=== PATIENT | female | born 1995 | race Caucasian/White ===

== ENCOUNTER 2022-03-23 17:31 | Emergency (ER) | payer OTHER, SELFPAY ==
--- NOTE | ~2022-03-23 | XR_ITS ---
EXAM: XR wrist RT min 3V DATE: 03/23/2022 18:49 HISTORY: pain, paresthesias . COMPARISON: None available. FINDINGS: Normal mineralization. No fracture or dislocation. No lytic or blastic lesion. Joint space s are maintained. No erosion or periosteal change. Soft tissues within normal limits. IMPRESSION: No acute osseous finding in the right wrist. Reviewed, dictated and finalized at location K. [employer] SAL[employer] COORDINATOR
--- NOTE | ~2022-03-23 | CT_ITS ---
EXAMINATION: CT cervical spine wo con DATE: 03/23/2022 18:56 INDICATION: right arm pain, paresthesias TECHNIQUE: Computed tomography (CT) of the cervical spine was performed without intravenous contrast. Automated exposure control and iterative reconstruction technique were employed. The dose-length pro duct was 458.34 mGy-cm. COMPARISON: None. FINDINGS: Vertebral Body Alignment: Intact. Straightening of the cervical spine as can occur with positioning o r muscle spasm. Craniocervical and atlantoaxial alignment: No significant degenerative change. Alignment intact. Osseous structures/fracture: No evidence of a lytic or blastic process in the visualized spine. No e vidence of acute fracture. . Cervical soft tissues: The paraspinal soft tissues planes are maintained. Degenerative changes: No significant degenerative changes. IMPRESSION: No acute fracture or traumatic malalignment in the cervical spine Reviewed, dictated and finalized at location K. R WOOD CUTTER
[2022-03-23 17:40] VITALS: BP 137/95; PULSE 89; RESP 16; TEMP 36.6; O2SAT 100
--- NOTE | 2022-03-23 18:40 | ED.EXTPRO ---
HPI - Extremity Problem General Chief complaint: Extremity Problem,Nontraumatic Stated complaint: burning pain and numbness in right hand Time Seen by Provider: 03/23/22 18:26 Source: patient Mode of arrival: ambulatory Limitations: no limitations History of Present Illness HPI Narrative: This is a 26 year old female that presents to the ER for right hand paresthesias ongoing over the last month. Reports tingling in the right fourth and fifth fingers. Reports weakness in her right hand. 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 Reports today she started to have pain and burning radiating into her arm which prompted her to be seen. She has not been evaluated for this complaint yet. Reports she does not currently have a primary care doctor. No recent injuries or trauma. Denies fever, erythema, or edema. Related Data Home Medications Medication Instructions Recorded Confirmed famotidine 03/23/22 Allergies Allergy/AdvReac Type Severity Reaction Status Date / Time No Known Allergies Allergy Verified 03/23/22 17:49 Review of Systems Review of Systems: CONSTITUTIONAL: Denies fever CARDIOVASCULAR: Denies edema. SKIN: Denies rash MUSCULOSKELETAL: Reports joint pain, and myalgia. NEUROLOGIC: Reports weakness. All systems reviewed & are unremarkable except as noted in HPI and below PMFSH Past Medical History Medical History (Updated 03/23/22 @ 19:31 by Lucy Ulloa PA-C) No active medical problems Social History Social History (Updated 03/23/22 @ 18:43 by Lucy Ulloa PA-C) Substance use: never Exam Narrative: GENERAL: Well-appearing, well-nourished, and in no acute distress. HEAD: Normocephalic, atraumatic. EYES: EOMI. NECK: No midline spinal tenderness CHEST: Clear to auscultation. No respiratory distress. No wheezes rales or rhonchi HEART: Regular rate and rhythm. No murmur heard. Normal peripheral pulses. EXTREMITIES: Normal range of motion. No edema or erythema. Normal DP pulse. Strength equal in bilateral upper extremities (5/5) SKIN: Warm, dry, no rash. NEURO: No focal deficits. Alert and oriented x3. PSYCH: Normal mood and affect Course Course Emergency Course: Patient updated on work-up and agrees with plan of care. Resting comfortably Vital Signs Vital signs: Vital Signs Temperature 98 F 03/23/22 17:40 Pulse Rate 89 03/23/22 17:40 Respiratory Rate 16 03/23/22 17:40 Blood Pressure 137/95 H 03/23/22 17:40 Pulse Oximetry 100 03/23/22 17:40 Temperature 98 F 03/23/22 17:40 Pulse Rate 89 03/23/22 17:40 Respiratory Rate 16 03/23/22 17:40 Blood Pressure 137/95 H 03/23/22 17:40 Pulse Oximetry 100 03/23/22 17:40 MDM - Extremity (Nontraumatic) MDM Narrative Medical decision making narrative: Patient presents to the emergency department for right hand paresthesias. This has been ongoing over the last month. No notable neurologic deficits on exam. 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 Has paresthesias in the ulnar nerve distribution. No erythema, edema, or warmth of the arm. Right wrist x-ray without acute osseous abnormalities. CT scan of the cervical spine without concerning findings. Patient was updated on case findings. Will be given follow-up with hand surgery. Instructed on conservative management in the meantime. She was given warnings to return to the ER Differential Diagnosis Differential diagnosis: Likely other (Ulnar neuropathy, cervical radiculopathy) Imaging Data Radiologist's impression: ITS Impressions Wrist X-Ray 03/23/22 18:55 IMPRESSION: No acute osseous finding in the right wrist. Cervical Spine CT 03/23/22 19:04 IMPRESSION: No acute fracture or traumatic malalignment in the cervical spine Critical Care Time Critical Care Time Critical Care Time: No Discharge Plan Discharge Clinical Impression: Paresthesias in right hand
[2022-03-23] MEDS: ACETAMINOPHEN 500 MG TABLET 1000 MG PO (19:13)
== END 2022-03-23 19:56 | disposition home or self-care (01) ==
PROVIDERS: Emergency Provider Physician Assistant
DX: R20.2 Paresthesia of skin (principal)
CPT/HCPCS: 72125; 73110; 99284; A9270

== ENCOUNTER 2023-03-29 10:23 | Emergency (ER) | payer OTHER, SELFPAY ==
[2023-03-29 10:24] VITALS: BP 123/79; PULSE 98; RESP 18; TEMP 36.4; O2SAT 100
--- NOTE | 2023-03-29 11:37 | ED.GENADULT ---
HPI - General Adult General Chief complaint: Back Pain/Injury Stated complaint: back pain Time Seen by Provider: 03/29/23 11:23 Source: patient Mode of arrival: ambulatory Limitations: no limitations History of Present Illness HPI narrative: This is a 27-year-old female who presents to the ED with chief complaint of lower back pain which began yesterday. Reports that she your out of the shower and felt like she could not hold herself up due to pain. Denies any specific injury or fall. Related Data Allergies Allergy/AdvReac Type Severity Reaction Status Date / Time No Known Allergies Allergy Verified 03/29/23 10:52 [facility] Past Medical History Medical History GERD (gastroesophageal reflux disease) Headache, migraine Surgical History Surgical History History of surgery on arm Right nerve arm surgery 06/2022 History of tonsillectomy 02/2021 Family History Family History Father Acute lymphoblastic leukemia (ALL) Von Willebrand disease Other Acute lymphoblastic leukemia (ALL) Grandparent Acute lymphoblastic leukemia (ALL) Asthma Hypertension Diabetes mellitus Mother Alcoholism Depression Factor V Leiden carrier Social History Social History Smoking status: Never smoker Alcohol intake: current Substance use: never Substance use type: does not use Living arrangements: with roommate(s) Occupation/Education: occupation 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 HEAD: Normocephalic, atraumatic. EYES: PERRLA and EOMI. ENT: Nares clear, no rhinorrhea or epistaxis. Mucous membranes moist. Oropharynx without tonsillar hypertrophy exudate or other lesions. NECK: Supple. No adenopathy or masses. CHEST: No respiratory distress. Clear to auscultation. No wheezes rales or rhonchi HEART: Regular rate and rhythm. No murmur heard. Normal peripheral pulses. ABDOMEN: Soft, nontender, nondistended, normal active bowel sounds. MSK: Positive straight leg raise on the right. Negative on the left. No midline spinal tenderness. Mild paraspinal tenderness in the lumbar region bilaterally. Normal range of motion. No edema. SKIN: Warm, dry, no rash. NEURO: Alert and oriented x3. No focal deficits. No saddle anesthesia. 5/5 strength and sensation in the upper and lower extremities. PSYCH: Normal mood and affect. Course Vital Signs Vital signs: Vital Signs Temperature 97.5 F L 03/29/23 10:24 Pulse Rate 98 03/29/23 10:24 Respiratory Rate 18 03/29/23 10:24 Blood Pressure 123/79 03/29/23 10:24 Pulse Oximetry 100 03/29/23 10:24 Oxygen Delivery Room Air 03/29/23 10:24 Temperature 97.5 F L 03/29/23 10:24 Pulse Rate 80 03/29/23 13:45 Respiratory Rate 16 03/29/23 13:45 Blood Pressure 113/79 03/29/23 13:45 Pulse Oximetry 97 03/29/23 13:45 Oxygen Delivery Room Air 03/29/23 10:24 Medical Decision Making MDM Narrative Medical decision making narrative: This patient presents with back pain most consistent with lumbar strain. Differential diagnoses includes lumbago versus musculoskeletal spasm / strain versus sciatica. No back pain red flags on history or physical. Presentation not consistent with malignancy (lack of history of malignancy, lack of B symptoms), fracture (no trauma, no bony tenderness to palpation), cauda equina (no bowel or urinary incontinence/retention, no saddle anesthesia, no distal weakness), AAA, viscus perforation , pulmonary embolism, renal colic, pyelonephritis (afebrile, no CVAT, no urinary symptoms). Given the
[2023-03-29] MEDS: ORPHENADRINE CITRATE 100 MG TABLET.ER PO (12:03)
[2023-03-29] MEDS: KETOROLAC 30 MG/ML VIAL (*BKC) IM (12:03)
[2023-03-29] MEDS: ACETAMINOPHEN 500 MG TABLET 1000 MG PO (12:03)
[2023-03-29 13:45] VITALS: BP 113/79; PULSE 80; RESP 16; O2SAT 97
== END 2023-03-29 13:45 | disposition home or self-care (01) ==
PROVIDERS: Emergency Provider Physician Assistant; PCP Family Medicine
DX: S39.012A Strain of muscle, fascia and tendon of lower back, initial encounter (principal); K21.9 Gastro-esophageal reflux disease without esophagitis; X58.XXXA Exposure to other specified factors, initial encounter
CPT/HCPCS: 96372; 99283; A9270; J1885

== ENCOUNTER 2023-03-30 10:36 | Outpatient (CLI) | payer OTHER, SELFPAY ==
[2023-03-30 19:59] LABS: Basophils Percent Auto 0.2 % (0.2-1.2); Eosinophils Absolute Auto 0.3 K/mm3 (0-0.3); Eosinophils Percent Auto 5.7 % (0-4.4); Hematocrit 35.5 % (37.0-47.0); Hemoglobin 9.8 g/dL (12.0-15.0); Immature Granulocyte Absolute 0.02 K/mm3 (0.00-0.031); Immature Granulocyte Percent A 0.4 % (0-0.5); Lymphocytes Absolute Auto 1.65 K/mm3 (0.9-3.2); Lymphocytes Percent Auto 35.1 % (18.3-44.2); Mean Corpuscular HGB Conc 27.6 g/dl (32-36); Mean Corpuscular Hemoglobin 22.2 pg (26-34); Mean Corpuscular Volume 80.3 fl (80-100); Mean Platelet Volume 9.8 fl (7.4-10.4); Monocytes Absolute Auto 0.4 K/mm3 (0.1-0.6); Monocytes Percent Auto 9.1 % (2.6-8.5); Neutrophils Absolute Auto 2.3 K/mm3 (1.3-6.7); Neutrophils Percent Auto 49.5 % (45.5-73.1); Platelet Count Result 185 k/mm3 (150-375); Red Blood Count 4.42 M/mm3 (4.2-5.4); Red Cell Distribution Width 17.1 % (11.5-14.5); White Blood Count 4.7 K/mm3 (4.5-10.0)
[2023-03-30 20:00] LABS: Alanine Aminotransferase 16 U/L (6-35); Albumin Level 4.4 g/dL (3.5-5.1); Alkaline Phosphatase 79 U/L (38-126); Anion Gap 5 mmol/L (8-16); Aspartate Amino Transferase 26 U/L (14-36); Bilirubin,Total 0.4 mg/dL (0.2-1.3); Blood Urea Nitrogen 20 mg/dL (7-17); Calcium 9.2 mg/dL (8.4-10.2); Carbon Dioxide 29 mmol/L (22-30); Chloride 103 mmol/L (98-107); Cholesterol 224 mg/dL (0-200); Estimated Glomerular Filt Rate > 60; Glucose 71 mg/dL (65-110); HDL Direct 82 mg/dL; Potassium 4.6 mmol/L (3.4-5.0); Sodium 137 mmol/L (137-145); Triglycerides 68 mg/dL (<150)
[2023-03-30 20:06] LABS: Rheumatoid Factor < 12.0 IU/ML (<12)
[2023-03-30 20:12] LABS: LDL Cholesterol Direct 102 mg/dL
[2023-03-30 21:02] LABS: Erythrocyte Sedimentation Rate 20 mm/hr (0-20)
[2023-03-30 21:11] LABS: Hemoglobin A1C 5.1 % (<5.7)
[2023-04-01 11:57] LABS: ANA Cascade Screen Negative (Negative)
== END 2023-03-30 10:37 | disposition home or self-care (01) ==
LOC: ANHGOSHLAB 10:37
PROVIDERS: PCP Family Medicine; Visit Provider Family Medicine
DX: Z00.00 Encounter for general adult medical examination without abnormal findings (principal); M54.50 Low back pain, unspecified
CPT/HCPCS: 36415; 80053; 80061; 83036; 84443; 85025; 85652; 86038; 86225; 86235; 86364; 86430

== ENCOUNTER 2023-04-13 10:08 | Outpatient (CLI) | payer OTHER, SELFPAY ==
[2023-04-13 14:14] LABS: Basophils Percent Auto 0.1 % (0.2-1.2); Eosinophils Absolute Auto 0.2 K/mm3 (0-0.3); Eosinophils Percent Auto 2.2 % (0-4.4); Hematocrit 33.7 % (37.0-47.0); Hemoglobin 9.5 g/dL (12.0-15.0); Immature Granulocyte Absolute 0.08 K/mm3 (0.00-0.031); Immature Granulocyte Percent A 0.9 % (0-0.5); Immature Reticulocyte Fraction 36.5 % (3.0-15.9); Lymphocytes Absolute Auto 3.81 K/mm3 (0.9-3.2); Lymphocytes Percent Auto 41.5 % (18.3-44.2); Mean Corpuscular HGB Conc 28.2 g/dl (32-36); Mean Corpuscular Hemoglobin 22.5 pg (26-34); Mean Corpuscular Volume 79.7 fl (80-100); Monocytes Absolute Auto 0.8 K/mm3 (0.1-0.6); Monocytes Percent Auto 8.7 % (2.6-8.5); Neutrophils Absolute Auto 4.3 K/mm3 (1.3-6.7); Neutrophils Percent Auto 46.6 % (45.5-73.1); Platelet Count Result 225 k/mm3 (150-375); Red Blood Count 4.23 M/mm3 (4.2-5.4); Red Cell Distribution Width 18.2 % (11.5-14.5); Reticulocyte Hemoglobin Conten 23.4 pg (28.2-35.7); Reticulocyte Percent 1.95 % (0.7-4.3); Reticulocytes Absolute 0.08 M/mm3 (0.02-0.1); White Blood Count 9.2 K/mm3 (4.5-10.0)
[2023-04-13 15:11] LABS: Iron 32 ug/dL (37-170)
[2023-04-13 15:21] LABS: Percent Iron Saturation 8 % (20-50)
[2023-04-13 15:36] LABS: Schistocytes None Seen (NORMAL)
[2023-04-13 15:37] LABS: Anisocytosis 2+ (NORMAL); Hypochromasia 1+ (NORMAL); Platelet Estimate Adequate (Adequate)
[2023-04-13 18:07] LABS: Ferritin 5.73 ng/mL (6.24-137)
[2023-04-21 12:22] LABS: Antithrombin III Activity 119 % normal (80-135); Factor V Leiden Mutation NEGATIVE; Protein S Antigen, Free 117 % normal (50-147)
== END 2023-04-13 10:09 | disposition home or self-care (01) ==
LOC: ANHGOSHLAB 10:10
PROVIDERS: PCP Family Medicine; Visit Provider Family Medicine
DX: D64.9 Anemia, unspecified (principal); Z82.49 Family history of ischemic heart disease and other diseases of the circulatory system
CPT/HCPCS: 36415; 81240; 81241; 82607; 82728; 83540; 83550; 85025; 85046; 85301; 85303; 85306